=== PATIENT | female | born 1995 | race American Indian/Alaskan Native ===

== ENCOUNTER 2016-07-26 05:49 | Emergency (ER) | payer BC ==
[2016-07-26 05:59] VITALS: BP 111/71
[2016-07-26] MEDS ORDERED: TYLENOL #3 PO ONE (10:28)
--- NOTE | 2016-07-26 10:33 | Emergency Department Report ---
HPI - General Chief Complaint: Extremity Problem,Nontraumatic - HPI HPI: 21-year-old -[place] female comes in with complaint of nose swollen and hurting. Francesco reports that she woke up this morning and noticed that her nose was swollen and she was having pain. Patient denies any trauma to her nose. She does admit to having seasonal allergies. She reports that her pain was a 7 out of 10 without touching it and is 10 out of 10 and she touches it. Patient describes the pain as throbbing burning and aching. He does report that she has not started her allergy medicine yet. ED Past Medical Hx - Past Medical History Previous Medical History?: Yes Hx Asthma: Yes - Surgical History Past Surgical History?: No - Social History Smoking Status: Never Smoker Substance Use Type: None - Medications Home Medications: Home Medications Medication Instructions Recorded Confirmed Last Taken Type Albuterol Sulfate [Ventolin HFA] 2 puff IH Q4H PRN 06/24/14 06/24/14 Unknown History medroxyPROGESTERone ACETATE 150 mg IM Q3M 06/24/14 06/24/14 Unknown History [Depo-Provera (Contraception)] Ondansetron [Zofran Odt] 4 mg PO Q6H #20 tab.rapdis 06/25/14 Unknown Rx traMADol [Ultram] 50 mg PO Q6HR PRN #14 tablet 06/25/14 Unknown Rx Acetaminophen/Codeine [Tylenol #3] 1 tab PO Q6H PRN #25 tab 11/04/14 Unknown Rx Cyclobenzaprine [Flexeril] 10 mg PO TID PRN #15 tablet 12/16/15 Unknown Rx Ibuprofen [Motrin] 800 mg PO Q8HR PRN #15 tablet 12/16/15 Unknown Rx Cephalexin [Keflex] 500 mg PO Q8HR #21 cap 01/15/16 Unknown Rx Ibuprofen [Motrin 600 MG tab] 600 mg PO Q8H PRN #15 tablet 01/15/16 Unknown Rx Lidocaine Viscous 2% 0.5 ml TP Q8H PRN #15 ml 01/15/16 Unknown Rx ED Review of Systems ROS: Stated complaint: SWOLLEN NOSE/PAINFUL/HURTS TO BREATHE Other details as noted in HPI Comment: All other systems reviewed and negative Physical Exam - Physical Exam Vital Signs: Vital Signs 07/26/16 07/26/16 05:58 06:18 Temperature 98.0 F 98 F Pulse Rate 59 L 59 L Respiratory 16 16 Rate Blood Pressure 111/71 Blood Pressure 111/71 [Right] O2 Sat by Pulse 100 100 Oximetry Physical Exam: GENERAL: Alert and oriented x3, no apparent distress, Normal Gait, atraumatic. HEAD: Head is normocephalic and a-traumatic. EYES: Extra ocular muscles are intact. Pupils are equal, round, and reactive to light and accommodation. EARS: symetrical, atraumatic, non tender, ear canal clear and moderate cerumen, tympanic membrance non inflamed. gross auditory nml bilaterally. NOSE: Nose symetrical, Nontender,Nares are erythematous and edematous. Tenderness to palpate on the left nare. Patient does have a Salute sign across the bridge of her nose MOUTH:Mouth is well hydrated and without lesions. Tonsils nonerythematous or swollen, Uvula midline, Tongue not elevated. Mucous membranes are moist. Posterior pharynx clear, no exudate or lesions. Patent airways. PSYCHIATRIC: Mood is congruent with affect, denies suicidal or homicidal ideations. SKIN: Warm and dry, No lesions, No ulceration or induration present ED Course Vital Signs 07/26/16 07/26/16 05:58 06:18 Temperature 98.0 F 98 F Pulse Rate 59 L 59 L Respiratory 16 16 Rate Blood Pressure 111/71 Blood Pressure 111/71 [Right] O2 Sat by Pulse 100 100 Oximetry ED Medical Decision Making - Medical Decision Making Patient's been evaluated by this provider in fast track. Discussed patient that this is most likely be from her allergies. Discussed the patient to use normal saline spray and applied Vaseline or Bactroban to each nare. Discussed with patient to start on her Zyrtec 10 mg by mouth daily. Discussed with patient she can take Tylenol for her pain. Patient verbalizes understanding. Critical care attestation.: If time is entered above; I have spent that time in minutes in the direct care of this critically ill patient, excluding procedure time. ED Disposition Clinical Impression: Acute irritant rhinitis Disposition: DISCHARGED TO HOME OR SELFCARE Is pt being admited?: No Does the pt Need Aspirin: No Condition: Stable Instructions: Allergic Rhinitis (ED) Additional Instructions: You can use normal saline sprays to the nose. He continues Vaseline or Bactroban or even triple antibiotic cream after applying the normal saline. Recommend starting back on her Zyrtec one pill once a day. Follow up with her primary care provider. Referrals: PRIMARY CARE,MD [Primary Care Provider] - 3-5 Days Forms: Work/School Release Form(ED), Accompanied Note
== END 2016-07-26 11:30 | disposition home or self-care (01) ==
LOC: ED 05:49
DX: J00 Acute nasopharyngitis [common cold] (principal); J30.2 Other seasonal allergic rhinitis; J45.909 Unspecified asthma, uncomplicated; Z88.8 Allergy status to other drugs, medicaments and biological substances
CPT/HCPCS: 99282

== ENCOUNTER 2016-12-23 18:13 | Emergency (ER) | payer BC ==
[2016-12-23 18:31] VITALS: BP 106/61
[2016-12-23 18:54] LABS: Basophils % (Auto) 0.3 % (0.0-1.8); Eosinophils % (Auto) 1.8 % (0.0-4.3); Hematocrit 39.4 % (30.3-42.9); Hemoglobin 13.4 gm/dl (10.1-14.3); Mean Corpuscular HGB Conc 34 % (30-34); Mean Corpuscular Hemoglobin 31 pg (28-32); Mean Corpuscular Volume 92 fl (79-97); Platelet Count 226 K/mm3 (140-440); Red Cell Distribution Width 12.5 % (13.2-15.2); White Blood Count 6.6 K/mm3 (4.5-11.0)
[2016-12-23 19:18] LABS: Alanine Aminotransferase 21 units/L (7-56); Albumin 4.1 g/dL (3.9-5); Albumin/Globulin Ratio 1.5 %; Alkaline Phosphatase 86 units/L (35-129); Anion Gap 19 mmol/L; BUN/Creatinine Ratio 13.75; Blood Urea Nitrogen 11 mg/dL (7-17); Calcium 9.3 mg/dL (8.4-10.2); Carbon Dioxide 24 mmol/L (22-30); Chloride 98.6 mmol/L (98-107); Glucose 107 mg/dL (65-100); Lipase 23 units/L (13-60); Potassium 4.3 mmol/L (3.6-5.0); Sodium 137 mmol/L (137-145); Total Protein 6.8 g/dL (6.3-8.2)
[2016-12-23 19:31] LABS: Bilirubin,Urine NEG (Negative); Blood,Urine NEG (Negative); Ketones,Urine NEG (Negative); Leukocyte Esterase,Urine NEG (Negative); Mucus,Urine FEW /HPF; Nitrite,Urine NEG (Negative); Protein,Urine <15 mg/dL mg/dL (Negative); RBC,Urine < 1.0 /HPF (0.0-6.0); Urobilinogen,Urine < 2.0 mg/dL (<2.0)
[2016-12-23] MEDS ORDERED: NORCO 10/325 ONE (21:30)
[2016-12-23] MEDS ORDERED: NORCO 10/325 PO ONE (21:44)
--- NOTE | 2016-12-23 22:23 | Emergency Department Report ---
HPI - General Chief Complaint: Abdominal Pain Time Seen by Provider: 12/23/16 20:26 - HPI HPI: 21-year-old female with abdominal cramping, followed 2 days. Symptoms started yesterday morning but got worse today. Patient denies any fever or chills or night sweats. Patient denies any nausea. Patient's LMP 1 month ago. ED Past Medical Hx - Past Medical History Previous Medical History?: Yes Hx Asthma: Yes - Surgical History Past Surgical History?: No - Social History Smoking Status: Never Smoker Substance Use Type: None - Medications Home Medications: Home Medications Medication Instructions Recorded Confirmed Last Taken Type Albuterol Sulfate [Ventolin HFA] 2 puff IH Q4H PRN 06/24/14 06/24/14 Unknown History medroxyPROGESTERone ACETATE 150 mg IM Q3M 06/24/14 06/24/14 Unknown History [Depo-Provera (Contraception)] Ondansetron [Zofran Odt] 4 mg PO Q6H #20 tab.rapdis 06/25/14 Unknown Rx traMADol [Ultram] 50 mg PO Q6HR PRN #14 tablet 06/25/14 Unknown Rx Acetaminophen/Codeine [Tylenol #3] 1 tab PO Q6H PRN #25 tab 11/04/14 Unknown Rx Cyclobenzaprine [Flexeril] 10 mg PO TID PRN #15 tablet 12/16/15 Unknown Rx Ibuprofen [Motrin] 800 mg PO Q8HR PRN #15 tablet 12/16/15 Unknown Rx Cephalexin [Keflex] 500 mg PO Q8HR #21 cap 01/15/16 Unknown Rx Ibuprofen [Motrin 600 MG tab] 600 mg PO Q8H PRN #15 tablet 01/15/16 Unknown Rx Lidocaine Viscous 2% 0.5 ml TP Q8H PRN #15 ml 01/15/16 Unknown Rx ED Review of Systems ROS: Stated complaint: STOMACH PAIN Other details as noted in HPI Physical Exam - Physical Exam Vital Signs: Vital Signs 12/23/16 12/23/16 12/23/16 18:29 20:30 21:45 Temperature 99 F 98.8 F Pulse Rate 77 67 Respiratory 18 16 18 Rate Blood Pressure 106/61 O2 Sat by Pulse 99 100 Oximetry Physical Exam: - Physical Exam Physical Exam: - General Limitations: No Limitations General appearance: alert, in no apparent distress - Head Head exam: Present: atraumatic, normocephalic - Eye Eye exam: Present: normal appearance - ENT ENT exam: Present: mucous membranes moist - Neck Neck exam: Present: normal inspection - Respiratory Respiratory exam: Present: normal lung sounds bilaterally. Absent: respiratory distress - Cardiovascular Cardiovascular Exam: Present: normal rhythm, tachycardia. Absent: systolic murmur, diastolic murmur, rubs, gallop - GI/Abdominal GI/Abdominal exam: Present: soft, normal bowel sounds - Extremities Exam Extremities exam: Present: normal inspection - Back Exam Back exam: Present: normal inspection - Neurological Exam Neurological exam: Present: alert, oriented X3 - Psychiatric Psychiatric exam: normal affect and mood - Skin Skin exam: Present: warm, dry, intact, normal color. Absent: rash ED Course Vital Signs 12/23/16 12/23/16 12/23/16 18:29 20:30 21:45 Temperature 99 F 98.8 F Pulse Rate 77 67 Respiratory 18 16 18 Rate Blood Pressure 106/61 O2 Sat by Pulse 99 100 Oximetry ED Medical Decision Making - Lab Data Result diagrams: 12/23/16 18:34 12/23/16 18:34 Critical care attestation.: If time is entered above; I have spent that time in minutes in the direct care of this critically ill patient, excluding procedure time. ED Disposition Clinical Impression: Abdominal pain Qualifiers: Abdominal location: generalized Qualified Code(s): R10.84 - Generalized abdominal pain Disposition: DC-01 TO HOME OR SELFCARE Is pt being admited?: No Does the pt Need Aspirin: No Condition: Stable Instructions: Abdominal Pain (ED) Referrals: PRIMARY CARE, [Primary Care Provider] - 3-5 Days
== END 2016-12-23 23:00 | disposition home or self-care (01) ==
LOC: ED 18:13
DX: R10.84 Generalized abdominal pain (principal); J45.909 Unspecified asthma, uncomplicated; Z88.8 Allergy status to other drugs, medicaments and biological substances
CPT/HCPCS: 36415; 80053; 81001; 81025; 83690; 84703; 85025; 99283

== ENCOUNTER 2021-03-15 08:50 | Emergency (ER) | payer BC, OTHER ==
[2021-03-15] MEDS ORDERED: ACETAMINOPHEN 500 MG TAB PO ONE (09:29)
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
--- NOTE | 2021-03-15 11:06 | Ultrasound Report ---
US OB <= 14 weeks fetus, US OB transvaginal INDICATION / CLINICAL INFORMATION: with pelvic pain. TECHNIQUE: Transabdominal and Transvaginal. COMPARISON: None available. FINDINGS: UTERUS: Appears within normal limits. GESTATIONAL SAC: Well-defined oval shape and intrauterine in location. YOLK SAC: No significant abnormality. EMBRYO/FETUS: - [place]-Rump Length = 0.3 cm - Heart Rate, beats per minute (if present) = 104 beats per minute ADNEXA: No significant abnormality. FREE FLUID: None. ADDITIONAL FINDINGS: None. IMPRESSION: 1. Single, living intrauterine with estimated sonographic age of 5 weeks 6 days. Signer Name: El Harp MD Signed: 03/15/2021 11:01 AM Workstation Name: [id number]
--- NOTE | 2021-03-15 11:06 | Ultrasound Report ---
US OB <= 14 weeks fetus, US OB transvaginal INDICATION / CLINICAL INFORMATION: with pelvic pain. TECHNIQUE: Transabdominal and Transvaginal. COMPARISON: None available. FINDINGS: UTERUS: Appears within normal limits. GESTATIONAL SAC: Well-defined oval shape and intrauterine in location. YOLK SAC: No significant abnormality. EMBRYO/FETUS: - [place]-Rump Length = 0.3 cm - Heart Rate, beats per minute (if present) = 104 beats per minute ADNEXA: No significant abnormality. FREE FLUID: None. ADDITIONAL FINDINGS: None. IMPRESSION: 1. Single, living intrauterine with estimated sonographic age of 5 weeks 6 days. Signer Name: El Harp MD Signed: 03/15/2021 11:01 AM Workstation Name: [id number]
[2021-03-15 11:15] LABS: Basophils % (Auto) 0.4 % (0.0-1.8); Eosinophils % (Auto) 0.9 % (0.0-4.3); Hematocrit 41.7 % (30.3-42.9); Hemoglobin 13.6 gm/dl (10.1-14.3); Lymphocytes # (Auto) 1.5 K/mm3 (1.2-5.4); Lymphocytes % (Auto) 29.5 % (13.4-35.0); Mean Corpuscular HGB Conc 33 % (30-34); Mean Corpuscular Volume 92 fl (79-97); Monocytes # (Auto) 0.3 K/mm3 (0.0-0.8); Monocytes % (Auto) 5.3 % (0.0-7.3); Platelet Count 216 K/mm3 (140-440); Red Blood Count 4.53 M/mm3 (3.65-5.03)
[2021-03-15 11:35] LABS: Alanine Aminotransferase 13 units/L (7-56); Albumin 4.3 g/dL (3.9-5); Blood Urea Nitrogen 6 mg/dL (7-17); Calcium 9.2 mg/dL (8.4-10.2); Hemolysis Index 3
[2021-03-15 11:36] LABS: BUN/Creatinine Ratio 9
[2021-03-15 12:19] LABS: Bilirubin,Urine NEG (Negative); Blood,Urine NEG (Negative); Color,Urine Yellow (Yellow); Mucus,Urine FEW /HPF; Protein,Urine <15 mg/dL mg/dL (Negative); RBC,Urine < 1.0 /HPF (0.0-6.0); Urobilinogen,Urine < 2.0 mg/dL (<2.0)
[2021-03-15 13:08] VITALS: BP 111/67
== END 2021-03-15 13:08 | disposition home or self-care (01) ==
LOC: ED 08:50
DX: O9A.211 Injury, poisoning and certain other consequences of external causes complicating pregnancy, first trimester (principal); O26.891 Other specified pregnancy related conditions, first trimester; R10.2 Pelvic and perineal pain; R51.9 Headache, unspecified; Z3A.01 Less than 8 weeks gestation of pregnancy; V49.49XA Driver injured in collision with other motor vehicles in traffic accident, initial encounter; Y93.89 Activity, other specified; Y92.89 Other specified places as the place of occurrence of the external cause; Y99.8 Other external cause status
CPT/HCPCS: 36415; 76801; 76817; 80053; 81001; 84702; 85025; 86900; 86901; 99284